=== PATIENT | female | born 1975 | race Caucasian/White ===

== ENCOUNTER 2025-01-24 07:16 | Day surgery (SDC) | payer OTHER ==
[2025-01-24] MEDS ORDERED: PROPOFOL 60 ML ONE (10:35)
[2025-01-24] MEDS ORDERED: Lidocaine 1% PF 5 ML VIAL ONE (10:37)
== END 2025-01-24 11:55 | disposition home or self-care (01) ==
LOC: CSHSDC 07:16
PROVIDERS: ATTEND Surgery
PROC: 0DJD8ZZ Inspection of Lower Intestinal Tract, Via Natural or Artificial Opening Endoscopic (ICD-10-PCS; principal; 2025-01-24)
DX: Z12.11 Encounter for screening for malignant neoplasm of colon (principal); K57.30 Diverticulosis of large intestine without perforation or abscess without bleeding; K64.8 Other hemorrhoids; I10 Essential (primary) hypertension; Z88.6 Allergy status to analgesic agent
CPT/HCPCS: J2704